=== PATIENT | male | born 1970 | race Caucasian/White ===

== ENCOUNTER → 2020-12-15 | Day surgery (SDC) | payer BC ==
[2020-12-15 08:05] VITALS: BP 138/85
== END | disposition home or self-care (01) ==
LOC: OR 06:09
PROVIDERS: ATTEND Physical Medicine & Rehabilitation Pain Medicine
DX: M46.1 Sacroiliitis, not elsewhere classified (principal); G57.02 Lesion of sciatic nerve, left lower limb; M79.10 Myalgia, unspecified site; M47.812 Spondylosis without myelopathy or radiculopathy, cervical region; M53.86 Other specified dorsopathies, lumbar region; M53.82 Other specified dorsopathies, cervical region; Z98.1 Arthrodesis status; G47.33 Obstructive sleep apnea (adult) (pediatric); Z01.810 Encounter for preprocedural cardiovascular examination; Z01.812 Encounter for preprocedural laboratory examination; Z20.822 Contact with and (suspected) exposure to COVID-19; Z68.31 Body mass index [BMI] 31.0-31.9, adult
CPT/HCPCS: 20552; G0260; 77002; 93005; U0002

== ENCOUNTER → 2021-01-12 | Day surgery (SDC) | payer BC ==
[~2021-01-12] MED LIST: IOPAMIDOL 200 MG/ML 20 ML VIAL IT ONE; LIDOCAINE HCL 1% 30ML-PF VIAL ONE; LIDOCAINE HCL 2% LOCAL INJ 5 ML SDV VIAL INJ ONE; MIDAZOLAM HCL 2 MG/2 ML VIAL ONE; POVIDONE IODINE 0.05% 0.05 % ML PO ONE; PROPOFOL IV EMULSION 10 MG/ML 20 ML VIAL ONE; TRIAMCINOLONE ACET 40 MG/ML VIAL ONE
[2021-01-12 08:20] VITALS: BP 122/84
== END | disposition home or self-care (01) ==
LOC: OR 06:50
PROVIDERS: ATTEND Physical Medicine & Rehabilitation Pain Medicine
DX: M47.896 Other spondylosis, lumbar region (principal); M46.1 Sacroiliitis, not elsewhere classified; M53.86 Other specified dorsopathies, lumbar region; G47.33 Obstructive sleep apnea (adult) (pediatric); Z01.812 Encounter for preprocedural laboratory examination; Z20.822 Contact with and (suspected) exposure to COVID-19; Z68.31 Body mass index [BMI] 31.0-31.9, adult
CPT/HCPCS: 64493; 64494; J2001 ×2; J2250; J2704; J3301; Q9967; U0002; 77003

== ENCOUNTER → 2021-02-16 | Day surgery (SDC) | payer BC ==
[~2021-02-16] MED LIST changes: -POVIDONE IODINE 0.05% 0.05 % ML PO ONE
[2021-02-16 08:15] VITALS: BP 133/89
== END | disposition home or self-care (01) ==
LOC: OR 05:43
PROVIDERS: ATTEND Physical Medicine & Rehabilitation Pain Medicine
DX: M47.896 Other spondylosis, lumbar region (principal); M46.1 Sacroiliitis, not elsewhere classified; M47.812 Spondylosis without myelopathy or radiculopathy, cervical region; G47.33 Obstructive sleep apnea (adult) (pediatric); Z01.812 Encounter for preprocedural laboratory examination; Z20.822 Contact with and (suspected) exposure to COVID-19
CPT/HCPCS: 64493; 64494; J2001 ×2; J2250; J2704; J3301; Q9967; U0002; 77003